=== PATIENT | male | born 1970 | race Caucasian/White ===

== ENCOUNTER 2018-09-06 17:19 | Observation (INO) | payer BC, MEDICARE ==
[2018-09-06] MEDS ORDERED: ASPIRIN 81 MG PO STA (17:52)
[2018-09-06] MEDS ORDERED: NITROGLYCERIN SL TABS 0.4 MG TAB SUBLINGUAL STA (17:52)
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
[2018-09-06] MEDS ORDERED: HEPARIN SODIUM,PORCINE 5,000 UNIT/ML 1 ML VIAL IV ONE (18:42)
[2018-09-06] MEDS ORDERED: HEPARIN SODIUM,PORCINE 5,000 UNIT/ML 1 ML VIAL IV PRN (18:42)
[2018-09-06] MEDS ORDERED: NITROGLYCERIN OINT 1 INCH/GM PACKET TOPICAL STA (18:42)
[2018-09-06 18:44] LABS: ALT 50 U/L (21-72); AST 44 U/L (17-59); Albumin 4.9 g/dL (3.5-5.0); Alkaline Phosphatase 173 U/L (38-126); Anion Gap 9 mmol/L; Blood Urea Nitrogen 17 mg/dL (9-20); Calcium 10.5 mg/dL (8.4-10.2); Carbon Dioxide 31 mmol/L (22-30); Chloride 100 mmol/L (98-107); Glucose 127 mg/dL (74-99); Magnesium 1.7 mg/dL (1.6-2.3); Potassium 4.9 mmol/L (3.5-5.1); Sodium 140 mmol/L (137-145); Total Bilirubin 0.5 mg/dL (0.2-1.3); Total Protein 8.2 g/dL (6.3-8.2)
[2018-09-06] MEDS ORDERED: HEPARIN SOD,PORK IN 0.45% NACL 25,000 UNIT in 0.45% NACL 1 250ML.BAG IV SCH (18:45)
[2018-09-06 19:15] LABS: Basophils % (A) 0 %; Eosinophils # (A) 0.2 k/uL (0-0.7); Eosinophils % (A) 2 %; HGB 15.1 gm/dL (13.0-17.5); Lymphocytes # (A) 1.5 k/uL (1.0-4.8); Lymphocytes % (A) 17 %; MCH 28.6 pg (25.0-35.0); MCHC 32.8 g/dL (31.0-37.0); MCV 87.1 fL (80.0-100.0); Monocytes # (A) 0.6 k/uL (0-1.0); Monocytes % (A) 6 %; Neutrophils # (A) 6.5 k/uL (1.3-7.7); Neutrophils % (A) 73 %; Platelet Count 209 k/uL (150-450); RBC 5.28 m/uL (4.30-5.90)
--- NOTE | 2018-09-06 19:27 | XR ---
EXAMINATION TYPE: XR chest 2V DATE OF EXAM: 09/06/2018 COMPARISON: 12/12/2015 HISTORY: Chest pain TECHNIQUE: Frontal and lateral views of the chest are obtained. FINDINGS: Heart and mediastinum are normal. Lungs are clear. Diaphragm is normal. Bony thorax is int act. There are chest leads. There are small linear density at the lateral left lung base. IMPRESSION: Subsegmental atelectasis at the left lung base is a change compared to old exam. Normal heart.
[2018-09-06] MEDS ORDERED: NITROGLYCERIN SL TABS 0.4 MG TAB SUBLINGUAL PRN (20:17)
[2018-09-06] MEDS ORDERED: MORPHINE SULFATE 4 MG/ML SYRINGE IV PRN (20:17)
[2018-09-06] MEDS ORDERED: SODIUM CHLORIDE 0.9% 1,000 ML IV SCH (20:30)
[2018-09-06] MEDS ORDERED: MORPHINE PUMP IV SCH (20:30)
[2018-09-06] MEDS ORDERED: ATORVASTATIN 20 MG TAB PO SCH (21:00)
[2018-09-06] MEDS ORDERED: OXYMETAZOLINE 0.05% NASL SPRAY 1 SPRAY BOTTLE NASAL PRN (22:25)
[2018-09-06] MEDS: PREGABALIN 75 MG CAP PO SCH (22:48)
[2018-09-06] MEDS: HYDROcodone/APAP 7.5-325MG 1 EACH TAB PO PRN (22:49)
[2018-09-06] MEDS: clonazePAM 1 MG TAB PO SCH (22:49)
[2018-09-07] MEDS: NITROGLYCERIN OINT 1 INCH/GM PACKET TOPICAL SCH ×2 (01:32→03:57)
[2018-09-07 06:32] LABS: Basophils % (A) 0 %; Eosinophils # (A) 0.3 k/uL (0-0.7); Eosinophils % (A) 4 %; HCT 41.8 % (39.0-53.0); HGB 13.3 gm/dL (13.0-17.5); Lymphocytes # (A) 3.3 k/uL (1.0-4.8); Lymphocytes % (A) 39 %; MCH 28.1 pg (25.0-35.0); MCHC 31.7 g/dL (31.0-37.0); MCV 88.6 fL (80.0-100.0); Monocytes # (A) 0.5 k/uL (0-1.0); Monocytes % (A) 6 %; Neutrophils # (A) 4.1 k/uL (1.3-7.7); Neutrophils % (A) 48 %; Platelet Count 253 k/uL (150-450); RBC 4.72 m/uL (4.30-5.90); RDW 14.2 % (11.5-15.5); WBC 8.5 k/uL (3.8-10.6)
[2018-09-07 07:56] LABS: Cholesterol 169 mg/dL (<200); HDL Cholesterol 61 mg/dL (40-60); LDL Cholesterol,Calculated 78 mg/dL (0-99); Triglycerides 152 mg/dL (<150)
[2018-09-07] MEDS: HYDROcodone/APAP 7.5-325MG 1 EACH TAB PO PRN (08:53)
[2018-09-07] MEDS ORDERED: LOSARTAN 50 MG TAB PO SCH (09:00)
[2018-09-07] MEDS ORDERED: ASPIRIN 325 MG TAB PO SCH (09:00)
[2018-09-07] MEDS ORDERED: DOBUTamine DRIP for NUC MED 500 MG in DEXTROSE/WATER 1 250ML.BAG IV ONE (09:12)
[2018-09-07] MEDS: PREGABALIN 75 MG CAP PO SCH (09:45)
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
[2018-09-07] MEDS: clonazePAM 1 MG TAB PO SCH (11:24)
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
--- NOTE | 2018-09-07 13:11 | P.STRESS ---
- Stress Test Note Stress Test Results/Findings: Exam Performed: dobutamine stress echo Exam Date: 09/07/18 Reason for Exam: CP Height: 6 ft 2 in Weight: 95.254 kg Protocol: DOBUTAMINE STRESS ECHO Stage: 4 Duration of Exercise: 12:23 Resting Heart Rate: 50 Resting Blood Pressure: 179/67 Maximum Achieved Heart Rate: 140 Maximum Achieved Blood Pressure: 179/67 85% PMHR: 145 100% PMHR: 171 METS: Technologist Comment: Stress Test Results/Findings: This is a 48-year-old gentleman was admitted to the hospital with chest pain. EKGs and cardiac enzymes are negative. Stress data: Baseline EKG showed sinus rhythm with normal NE interval, QRS duration. Blood pressure at rest is 178/64 with pulse rate of 50. A standard dose of dobutamine was initiated and was titrated to maximum 40 mics. Patient achieved a maximum rate of 140 with a blood pressure 110/40. EKGs taken during the dobutamine infusion showed ST-T changes in the inferolateral and anterolateral leads with some T-wave inversion. These changes were not associated with any chest pain changes reverted back to close to normal in about 4 minutes and the post-exercise.. Echo data: Baseline echo images show normal wall motion and thickening. Echo images at low dose and high dose dobutamine showed progressive augmentation of wall motion and thickening in all the segments. Final impression: #1. Mildly positive stress test, b.ased on EKG changes #2. Negative dobutamine stress echo.
--- NOTE | 2018-09-07 13:48 | ECHOF ---
Referral Reason:cp MEASUREMENTS -------- HEIGHT: 188.0 cm WEIGHT: 95.3 kg BP: 100/66 RVIDd: 2.6 cm (< 3.3) IVSd: 1.3 cm (0.6 - 1.1) LVIDd: 4.1 cm (3.9 - 5.3) LVPWd: 1.2 cm (0.6 - 1.1) IVSs: 1.6 cm LVIDs: 2.5 cm LVPWs: 1.5 cm LA Diam: 3.2 cm (2.7 - 3.8) LAESV Index (A-L): 14.90 ml/m Ao Diam: 3.5 cm (2.0 - 3.7) AV Cusp: 2.2 cm (1.5 - 2.6) MV EXCURSION: 17.918 mm (> 18.000) MV EF SLOPE: 62 mm/s (70 - 150) EPSS: 0.5 cm MV E Chaparro: 0.80 m/s MV DecT: 241 ms MV A Chaparro: 0.72 m/s MV E/A Ratio: 1.10 FINDINGS -------- Sinus rhythm. This was a technically good study. The left ventricular size is normal. There is mild concentric left ventricular hypertrophy. Overa ll left ventricular systolic function is normal with, an EF between 60 - 65 %. The right ventricle is normal in size. Normal LA size by volume 22+/-6 ml/m2. The right atrium is normal in size. The aortic valve is trileaflet and appears structurally normal. The mitral valve is normal. The tricuspid valve appears structurally normal. There is no pulmonic regurgitation present. The aortic root size is normal. Normal inferior vena cava with normal inspiratory collapse consistent with estimated right atrial pre ssure of 5 mmHg. There is no pericardial effusion. CONCLUSIONS -------- 1. Sinus rhythm. 2. This was a technically good study. 3. The left ventricular size is normal. 4. There is mild concentric left ventricular hypertrophy. 5. Overall left ventricular systolic function is normal with, an EF between 60 - 65 %. 6. The right ventricle is normal in size. 7. Normal LA size by volume 22+/-6 ml/m2. 8. The right atrium is normal in size. 9. The aortic valve is trileaflet and appears structurally normal. 10. The mitral valve is normal. 11. The tricuspid valve appears structurally normal. 12. There is no pulmonic regurgitation present. 13. The aortic root size is normal. 14. Normal inferior vena cava with normal inspiratory collapse consistent with estimated right atrial pressure of 5 mmHg. 15. There is no pericardial effusion. TIE KNITTER HELPER: Alie Tariq RDCS
[2018-09-07 16:37] VITALS: BP 103/68; PULSE 51; RESP 18; TEMP 97.5
--- NOTE | 2018-09-07 18:07 | US ---
EXAMINATION TYPE: US venous doppler duplex LE DATE OF EXAM: 09/07/2018 2:36 PM COMPARISON: NONE CLINICAL HISTORY: r/o dvt, bedbound pt . Fatigue, chest pain SIDE PERFORMED: Bilateral TECHNIQUE: The lower extremity deep venous system is examined utilizing real time linear array sonog zenon with graded compression, doppler sonography and color-flow sonography. VESSELS IMAGED: External Iliac Vein (EIV) Common Femoral Vein Deep Femoral Vein Greater Saphenous Vein * Femoral Vein Popliteal Vein Small Saphenous Vein * Proximal Calf Veins (* superficial vessels) There is normal flow, compressibility, vascular waveforms. Right Leg: Negative for DVT Left Leg: Negative for DVT IMPRESSION: There is no evidence of deep venous thrombosis in both legs..
--- NOTE | 2018-09-08 09:37 | ECHOS ---
Stress Test Results/Findings: Exam Performed: dobutamine stress echo Exam Date: 09/07/18 Reason for Exam: CP Height: 6 ft 2 in Weight: 95.254 kg Protocol: DOBUTAMINE STRESS ECHO Stage: 4 Duration of Exercise: 12:23 Resting Heart Rate: 50 Resting Blood Pressure: 179/67 Maximum Achieved Heart Rate: 140 Maximum Achieved Blood Pressure: 179/67 85% PMHR: 145 100% PMHR: 171 METS: Technologist Comment: Stress Test Results/Findings: This is a 48-year-old gentleman was admitted to the hospital with chest pain. EKGs and cardiac enzymes are negative. Stress data: Baseline EKG showed sinus rhythm with normal SC interval, QRS duration. Blood pressure at rest is 178/64 with pulse rate of 50. A standard dose of dobutamine was initiated and was titrated to maximum 40 mics. Patient achieved a maximum rate of 140 with a blood pressure 110/40. EKGs taken during the dobutamine infusion showed ST-T changes in the inferolateral and anterolateral leads with some T-wave inversion. These changes were not associated with any chest pain changes reverted back to close to normal in about 4 minutes and the post-exercise.. Echo data: Baseline echo images show normal wall motion and thickening. Echo images at low dose and high dose dobutamine showed progressive augmentation of wall motion and thickening in all the segments. Final impression: #1. Mildly positive stress test, based on EKG changes #2. Negative dobutamine stress echo. [facility]
== END 2018-09-07 18:30 | disposition home or self-care (01) ==
LOC: EC 17:19 → 1SOBS 20:17
PROVIDERS: ADMIT Internal Medicine; ATTEND Internal Medicine
DX: R07.2 Precordial pain (principal); J98.11 Atelectasis; I10 Essential (primary) hypertension; E78.5 Hyperlipidemia, unspecified; G89.29 Other chronic pain; M54.9 Dorsalgia, unspecified; G62.9 Polyneuropathy, unspecified; Z98.1 Arthrodesis status; F41.9 Anxiety disorder, unspecified; F17.200 Nicotine dependence, unspecified, uncomplicated; E66.9 Obesity, unspecified; Z68.27 Body mass index [BMI] 27.0-27.9, adult; Z79.899 Other long term (current) drug therapy; Z79.891 Long term (current) use of opiate analgesic; Z87.828 Personal history of other (healed) physical injury and trauma; Z88.0 Allergy status to penicillin; Z82.49 Family history of ischemic heart disease and other diseases of the circulatory system; Z82.61 Family history of arthritis; Z99.3 Dependence on wheelchair; Z96.89 Presence of other specified functional implants
CPT/HCPCS: 96366 ×3; 96376; 96365; 99291; 36415; 93005; 93306; 93351; 85379; 83880; 80061; 80053; 83735; 84484 ×2; 85025 ×2; 85730; 71046; 93970; G0378 ×2; J1250; J1644 ×2

== ENCOUNTER 2022-05-27 16:49 | Observation (INO) | payer MEDICARE ==
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
[2022-05-27] MEDS ORDERED: SODIUM CHLORIDE 0.9% 1,000 ML IV STA (18:45)
[2022-05-27] MEDS ORDERED: ASPIRIN 81 MG PO STA (18:45)
[2022-05-27] MEDS ORDERED: PANTOPRAZOLE 40 MG/10 ML VIAL IVP STA (18:46)
[2022-05-27] MEDS ORDERED: HEPARIN SODIUM 1,000 UN/ML (10ML VL) IV PRN (18:46)
[2022-05-27] MEDS ORDERED: HEPARIN SODIUM 1,000 UN/ML (10ML VL) IV ONE (18:46)
--- NOTE | 2022-05-27 18:51 | XR ---
EXAMINATION TYPE: XR chest 2V DATE OF EXAM: 05/27/2022 6:08 PM COMPARISON: Chest radiographs from 09/06/2018 TECHNIQUE: XR chest 2V Frontal and lateral views of the chest. CLINICAL INDICATION:Male, 52 years old with history of Chest Pain; FINDINGS: Lungs/Pleura: There is no evidence of pleural effusion, focal consolidation, or pneumothorax. Pulmonary vascularity: Unremarkable. Heart/mediastinum: Cardiomediastinal silhouette is unremarkable. Musculoskeletal: No acute osseous pathology. There is fixation hardware in the lower cervical spine. IMPRESSION: No acute cardiopulmonary disease/process.
[2022-05-27] MEDS ORDERED: HEPARIN SOD,PORK IN 0.45% NACL 25,000 UNIT in 0.45% NACL 1 250ML.BAG IV SCH (19:00)
[2022-05-27 19:01] LABS: Basophils # (A) 0.1 k/uL (0-0.2); Basophils % (A) 1 %; Eosinophils # (A) 0.7 k/uL (0-0.7); Eosinophils % (A) 7 %; HCT 43.8 % (39.0-53.0); HGB 14.4 gm/dL (13.0-17.5); Lymphocytes # (A) 2.8 k/uL (1.0-4.8); Lymphocytes % (A) 30 %; MCH 28.7 pg (25.0-35.0); MCHC 32.8 g/dL (31.0-37.0); MCV 87.6 fL (80.0-100.0); Mean Platelet Volume 7.9; Monocytes # (A) 0.6 k/uL (0-1.0); Monocytes % (A) 7 %; Neutrophils # (A) 4.8 k/uL (1.3-7.7); Neutrophils % (A) 52 %; Platelet Count 334 k/uL (150-450); RDW 13.2 % (11.5-15.5); WBC 9.2 k/uL (3.8-10.6)
[2022-05-27 19:22] LABS: Partial Thromboplastin Time 23.2 sec (22.0-30.0); Prothrombin Time 10.3 sec (9.0-12.0)
[2022-05-27 19:24] LABS: ALT 26 U/L (4-49); AST 29 U/L (17-59); African American GFR (CKD) >90 (>60 ml/min/1.73 sqM); Albumin 5.1 g/dL (3.5-5.0); Alkaline Phosphatase 131 U/L (38-126); Anion Gap 10 mmol/L; Blood Urea Nitrogen 20 mg/dL (9-20); Calcium 10.1 mg/dL (8.4-10.2); Carbon Dioxide 30 mmol/L (22-30); Chloride 104 mmol/L (98-107); Glucose 113 mg/dL (74-99); Magnesium 2.1 mg/dL (1.6-2.3); Non-African American GFR(CKD) >90 (>60 ml/min/1.73 sqM); Potassium 4.6 mmol/L (3.5-5.1); Sodium 144 mmol/L (137-145); Total Bilirubin 0.5 mg/dL (0.2-1.3); Total Protein 8.5 g/dL (6.3-8.2)
[2022-05-27] MEDS ORDERED: NALOXONE 0.4 MG/ML 1 ML VIAL IV PRN (19:49)
[2022-05-27] MEDS ORDERED: ONDANSETRON 4 MG/2 ML VIAL IVP PRN (19:49)
[2022-05-27] MEDS ORDERED: ACETAMINOPHEN TAB 325 MG TAB PO PRN (19:49)
[2022-05-27] MEDS ORDERED: HYDROcodone/APAP 7.5-325MG 1 EACH TAB PO PRN (22:18)
[2022-05-27] MEDS ORDERED: DEXTROSE 50% SYRINGE 50 ML IVP PRN ×2 (22:21)
[2022-05-27] MEDS: PREGABALIN 75 MG CAP PO SCH (22:29)
[2022-05-27] MEDS ORDERED: BACLOFEN INJ SCH (22:30)
[2022-05-27] MEDS ORDERED: MORPHINE INJ SCH (22:30)
[2022-05-27] MEDS ORDERED: ATORVASTATIN 20 MG TAB PO SCH (22:30)
[2022-05-28 03:25] VITALS: TEMP 97.3
[2022-05-28 05:51] LABS: Glucose,Whole Blood 94 mg/dL (70-110)
[2022-05-28] MEDS: INSULIN ASPART (NovoLOG) 100 UNIT/ML VIAL SQ SCH ×2 (05:55→12:08)
[2022-05-28] MEDS: PREGABALIN 75 MG CAP PO SCH (07:40)
[2022-05-28 08:08] VITALS: BP 147/74; PULSE 42; RESP 17
[2022-05-28] MEDS ORDERED: ASPIRIN 81 MG PO SCH (09:00)
[2022-05-28 10:08] LABS: Basophils # (A) 0.05 X 10*3/uL (0.00-0.10); Basophils % (A) 0.7 %; Eosinophils # (A) 0.56 X 10*3/uL (0.04-0.35); Eosinophils % (A) 7.3 %; HCT 37.8 % (39.6-50.0); HGB 11.6 g/dL (13.0-17.0); Immature Grans, Automated 0.3 %; Lymphocytes % (A) 44.3 %; MCHC 30.7 g/dL (32.0-37.0); MCV 91.1 fL (80.0-97.0); Mean Platelet Volume 10.1 fL (9.5-12.2); Monocytes # (A) 0.68 X 10*3/uL (0.20-1.00); Monocytes % (A) 8.9 %; NRBC Per 100 WBC 0 /100 WBCS (0.0-0.0); Neutrophils # (A) 2.96 X 10*3/uL (1.80-7.70); Neutrophils % (A) 38.5 %; Platelet Count 347 X 10*3/uL (140-440); RBC 4.15 X 10*6/uL (4.40-5.60); WBC 7.67 X 10*3/uL (4.50-10.00)
--- NOTE | 2022-05-28 11:09 | CA ---
Transthoracic Echo Report Name: Sage Rosado Age: 52 Gender: M : 1970 Exam Date: 05/28/2022 08:51 Exam Location: [place] [facility] Ht (in): 74 Wt (lb): 220 Ordering Physician: Chip Saldana Attending/Referring Phys: Decaler Melissa Malcolm RDCS Procedure CPT: Indications: Chest Pain Cardiac Hx: Technical Quality: Fair Contrast 1: Total Dose (mL): Contrast 2: Total Dose (mL): MEASUREMENTS (Male / Female) Normal Values 2D ECHO LV Diastolic Diameter PLAX 4.0 cm 4.2 - 5.9 / 3.9 - 5.3 cm LV Systolic Diameter PLAX 2.5 cm IVS Diastolic Thickness 1.1 cm 0.6 - 1.0 / 0.6 - 0.9 cm LVPW Diastolic Thickness 1.1 cm 0.6 - 1.0 / 0.6 - 0.9 cm LV Relative Wall Thickness 0.6 RV Internal Dim ED PLAX 3.8 cm LA Volume 46.1 cm??? 18 - 58 / 22 - 52 cm??? M-MODE Aortic Root Diameter MM 3.3 cm LA Systolic Diameter MM 3.7 cm LA Ao Ratio MM 1.1 AV Cusp Separation MM 2.0 cm DOPPLER AV Peak Velocity 148.4 cm/s AV Peak Gradient 8.8 mmHg AV Mean Velocity 92.8 cm/s AV Mean Gradient 4.0 mmHg AV Velocity Time Integral 34.6 cm LVOT Peak Velocity 112.8 cm/s LVOT Peak Gradient 5.1 mmHg MV Area PHT 2.9 cm??? Mitral E Point Velocity 111.5 cm/s Mitral A Point Velocity 77.0 cm/s Mitral E to A Ratio 1.4 MV Deceleration Time 265.5 ms FINDINGS Left Ventricle Mildly increased septal wall thickness. Normal left ventricular systolic function with no obvious regional wall motion abnormalities. Left ventricular ejection fraction is estimated at 55-60 %. Right Ventricle Mild right ventricular dilatation. Right ventricular systolic pressure within normal limits. Right Atrium Normal right atrial size. Left Atrium Normal left atrial size. Mitral Valve Structurally normal mitral valve. Mild mitral regurgitation. Aortic Valve No aortic valve stenosis or regurgitation. Tricuspid Valve Mild tricuspid regurgitation. Pulmonic Valve Structurally normal pulmonic valve. Trace pulmonic regurgitation. Pericardium No pericardial effusion. Aorta Normal size aortic root and proximal ascending aorta. CONCLUSIONS Normal LV size and systolic function. Borderline concentric LVH. Mild mitral and tricuspid insufficiency. No pericardial effusion Previewed by: Dr. Lars Collier MD (Electronically Signed) Final Date: 28 May 2022 11:08
[2022-05-28 12:00] LABS: INR 0.97 (0.90-1.11)
[2022-05-28 12:07] LABS: Glucose,Whole Blood 119 mg/dL (70-110)
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
[2022-05-28] MEDS ORDERED: DOCUSATE 100 MG CAP PO SCH (21:00)
--- NOTE | 2022-05-29 17:43 | P.DS ---
Providers Date of admission: 05/27/22 20:06 Expected date of discharge: 05/28/22 Attending physician: Lane Angel Consults: 05/27/22 19:49 Consult Physician Routine Consulting Provider: Dagoberto Glover Consult Reason/Comments: chest pain Do you want consulting provider notified?: Yes, Notify in am Primary care physician: Hudson Zayas MD Hospital Course: Final diagnosis Chest pain, ruled out ACS Hypertension Hyperlipidemia Continued ongoing nicotine abuse Chronic back pain and has a pain pump device GI prophylaxis DVT prophylaxis Full code Discharge disposition Patient is being discharged in a stable condition with guarded prognosis to home. Patient will follow-up with Dr. Hudson Zayas in the outpatient setting upon discharge. Patient is to follow up outpatient with cardiology for stress testing as scheduled. Total time taken is greater than 35 minutes. Hospital course This is a 52-year-old male who was recently admitted with 2 days of chest pain. Patient was evaluated by cardiology had negative troponins. Patient was instructed to follow-up outpatient for stress testing in the outpatient center. Patient reports to feeling improved and denies any further chest pain. Patient has been cleared by cardiology for discharge. Currently no reports of chest pain, shortness of breath, or palpitations. Patient is afebrile. No reports of nausea or vomiting and patient is tolerating diet. Patient will be discharged home today Physical exam: Gen: This is a 52 year old who is awake , alert and oriented 3, well-developed, well-nourished HEENT: Head is atraumatic, normocephalic. Pupils equal, round. Sclerae is anicteric. NECK: Supple. No JVD. No lymphadenopathy. No thyromegaly. LUNGS: Clear to auscultation. No wheezes or rhonchi. No intercostal retraction s. HEART: Regular rate and rhythm. No murmur. ABDOMEN: Soft. Bowel sounds are present. No masses. No tenderness. EXTREMITIES: No pedal edema. No calf tenderness. NEUROLOGICAL: Patient is awake, alert and oriented x3. Cranial nerves 2 through 12 are grossly intact. Please refer to medication reconciliation sheet for a list of medications. The impression and plan of care has been dictated by Delmy Pop, Nurse Practitioner as directed. Dr. Morgan MD I have performed a history and examination and MDM of this patient, discussed the same with the dictator, and agree with the dictator's assessment and plan as written ,documented as a scribe. Based on total visit time, I have performed more than 50% of the visit. Patient Condition at Discharge: Stable Plan - Discharge Summary New Discharge Prescriptions: Continue HYDROcodone/APAP 7.5-325MG [[place] 7.5-325] 1 tab PO Q8H PRN PRN Reason: Pain Losartan Potassium [Cozaar] 100 mg PO DAILY Pregabalin [Lyrica] 150 mg PO BID Atorvastatin Calcium [Lipitor] 20 mg PO HS Aspirin 81 mg PO DAILY #30 chewable Docusate [Colace] 100 mg PO HS metFORMIN HCL [Glucophage] 500 mg PO HS Morphine & Baclofen Pain Pump 1 dose INTRATHECA CONTINUOUS Discharge Medication List HYDROcodone/APAP 7.5-325MG [[place] 7.5-325] 1 tab PO Q8H PRN 12/12/15 [History] Atorvastatin Calcium [Lipitor] 20 mg PO HS 09/06/18 [History] Losartan Potassium [Cozaar] 100 mg PO DAILY 09/06/18 [History] Pregabalin [Lyrica] 150 mg PO BID 09/06/18 [History] Aspirin 81 mg PO DAILY #30 chewable 09/07/18 [Rx] Docusate [Colace] 100 mg PO HS 05/27/22 [History] Morphine & Baclofen Pain Pump 1 dose INTRATHECA CONTINUOUS 05/27/22 [History] metFORMIN HCL [Glucophage] 500 mg PO HS 05/27/22 [History] Follow up Appointment(s)/Referral(s): Hudson Zayas MD [Primary Care Provider] - 3 Days Lars Collier MD [STAFF PHYSICIAN] - 1 Week Patient Instructions/Handouts: Chest Pain (DC) Activity/Diet/Wound Care/Special Instructions: Activity Limited until follow-up Follow-up primary care provider on discharge Follow-up cardiology outpatient for stress testing Continue taking medications as prescribed Continue heart healthy diet Discharge Disposition: HOME SELF-CARE
== END 2022-05-28 12:55 | disposition home or self-care (01) ==
LOC: EC 16:49 → 6NMEDSUR 20:06
PROVIDERS: ADMIT Hospitalist; ATTEND Hospitalist
DX: R07.89 Other chest pain (principal); I10 Essential (primary) hypertension; I08.1 Rheumatic disorders of both mitral and tricuspid valves; E78.5 Hyperlipidemia, unspecified; R73.03 Prediabetes; G62.9 Polyneuropathy, unspecified; R00.1 Bradycardia, unspecified; R19.7 Diarrhea, unspecified; R11.0 Nausea; F41.9 Anxiety disorder, unspecified; F17.290 Nicotine dependence, other tobacco product, uncomplicated; G89.21 Chronic pain due to trauma; M54.9 Dorsalgia, unspecified; M62.830 Muscle spasm of back; V89.2XXS Person injured in unspecified motor-vehicle accident, traffic, sequela; Z99.3 Dependence on wheelchair; E66.9 Obesity, unspecified; Z68.28 Body mass index [BMI] 28.0-28.9, adult; Z20.822 Contact with and (suspected) exposure to COVID-19; Z79.84 Long term (current) use of oral hypoglycemic drugs; Z79.899 Other long term (current) drug therapy; Z88.0 Allergy status to penicillin; Z97.8 Presence of other specified devices; Z98.1 Arthrodesis status; Z87.828 Personal history of other (healed) physical injury and trauma; Z98.890 Other specified postprocedural states; Z82.49 Family history of ischemic heart disease and other diseases of the circulatory system; Z82.61 Family history of arthritis
CPT/HCPCS: 96361; 96366 ×3; 96376; 96365; 96375; 99285; 36415; 93005; 93306; 80053; 84443; 83735; 84484 ×2; 85025 ×2; 85610 ×2; 85730 ×2; 83036; 87636; 71046; G0378 ×2; J1644 ×2; C9113

== ENCOUNTER 2024-11-07 13:01 | Emergency (ER) | payer MEDICARE ==
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
--- NOTE | 2024-11-07 14:18 | XR ---
EXAMINATION TYPE: XR forearm RT DATE OF EXAM: 11/07/2024 1:32 PM COMPARISON: None CLINICAL INDICATION: Male, 54 years old with history of fall Obvious deformity, pain; PHH, pain TECHNIQUE: 2 views FINDINGS: Impacted and dorsally angulated fracture distal radial metaphysis. There is second in area of positive ulnar variance and additional nondisplaced fracture distal ulnar head and ulnar styloid process. No elbow joint effusion. Elbow articulation grossly intact. IMPRESSION: 1. Impacted Colles' fracture. 2. Additional nondisplaced fracture involving the head of the ulna and ulnar styloid process. [facility], Workstation: [facility], 11/07/2024 2:15 PM
[2024-11-07] MEDS: HYDROmorphone 0.5 MG/0.5 ML SYRINGE IVP STA (16:02)
[2024-11-07] MEDS: SODIUM CHLORIDE 0.9% 500 ML 500 ML IV ONE (16:03)
[2024-11-07] MEDS: PROPOFOL 10 MG/ML 20 ML VIAL IV ONE ×3 (16:51→16:52)
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
[2024-11-07 17:45] VITALS: BP 102/53; PULSE 75; RESP 16; TEMP 97.4
== END 2024-11-07 17:46 | disposition home or self-care (01) ==
LOC: EC 13:01
DX: S52.91XA Unspecified fracture of right forearm, initial encounter for closed fracture (principal); F17.290 Nicotine dependence, other tobacco product, uncomplicated; Z88.0 Allergy status to penicillin; W18.09XA Striking against other object with subsequent fall, initial encounter
CPT/HCPCS: 73090; 73100; 99284; 96374; 96360; 99152; 99153; 25605; J2704; J1171